=== PATIENT | male | born 1950 | race Caucasian/White ===

== ENCOUNTER 2020-09-24 01:44 | Emergency (ER) | payer MEDICARE, OTHER ==
[~2020-09-24] VITALS: Ht 180.3 cm; Wt 100.0 kg
[2020-09-24] MEDS ORDERED: NORCO 325 MG-51 TAB PO (03:46)
[2020-09-24] MEDS ORDERED: ROBAXIN 75750 MG/TAB PO (03:46)
[2020-09-24 04:10] VITALS: BP 111/73; PULSE 66; TEMP 97.5
== END 2020-09-24 04:10 | disposition home or self-care (01) ==
LOC: COL.ER 01:44
DX: M43.6 Torticollis (principal)
CPT/HCPCS: J1885; J3010

== ENCOUNTER 2022-02-01 14:45 | Emergency (ER) | payer OTHER, MEDICARE ==
[~2022-02-01] VITALS: Ht 180.3 cm; Wt 98.2 kg
[~2022-02-01 14:45] MED LIST: NORCO 325 MG-51 TAB PO; ROBAXIN 75750 MG/TAB PO
[2022-02-01 15:39] VITALS: BP 126/83; PULSE 67; TEMP 98.2
[2022-02-01] MEDS ORDERED: FLOMAX 0.40.4 MG/CAP PO (16:36)
[2022-02-01] MEDS ORDERED: STATIN (16:37)
[2022-02-01] MEDS ORDERED: ROBAXIN 50500 MG/TAB PO (17:34)
[2022-02-01] MEDS ORDERED: LIDODERM 5% PATC1 EA TP (17:34)
== END 2022-02-01 17:41 | disposition home or self-care (01) ==
LOC: COL.ER 14:45
DX: M54.50 Low back pain, unspecified (principal); G89.29 Other chronic pain; Z98.890 Other specified postprocedural states; Z87.891 Personal history of nicotine dependence